=== PATIENT | female | born 1955 | race Two or more races ===

== ENCOUNTER 2017-05-06 12:19 | Emergency (ER) | payer OTHER ==
[~2017-05-06] VITALS: Ht 175.3 cm; Wt 122.5 kg
[~2017-05-06 12:19] MED LIST: CLON2TAB PO; LEVA15HF5 INH; LITH300C4 PO; MIRT30TA PO; SULF1TAB48 PO; TOPI100T11 PO; ZOLP5TAB2 PO
--- NOTE | 2017-05-06 12:19 | NUR ---
c/o flu-like symptoms: cough and chest congestion x 6 days. placed on monitor. awaiting md order
[2017-05-06] MEDS ORDERED: IPRATROPIUM NEB FS 0.5 MG/2.5 ML AMPUL.NEB NEB ONE (13:00)
[2017-05-06] MEDS ORDERED: ALBUTEROL FS 2.5 MG/3 ML VIAL.NEB NEB ONE (13:00)
[2017-05-06] MEDS ORDERED: IPRATROPIUM NEB FS 0.5 MG/2.5 ML AMPUL.NEB ONE (13:15)
[2017-05-06] MEDS ORDERED: ALBUTEROL FS 2.5 MG/3 ML VIAL.NEB ONE (13:15)
--- NOTE | 2017-05-06 13:36 | NUR ---
PROCESSING ASSOCIATE AT BEDSIDE
[2017-05-06 14:21] VITALS: BP 130/81
== END 2017-05-06 14:22 | disposition home or self-care (01) ==
LOC: ER 12:20
DX: J40 Bronchitis, not specified as acute or chronic (principal); J45.909 Unspecified asthma, uncomplicated; F31.9 Bipolar disorder, unspecified
CPT/HCPCS: 71010-TC; A4606; Z7610